=== PATIENT | female | born 1940 | race Native Hawaiian/Other Pacific Islander ===

== ENCOUNTER 2019-01-07 11:07 | Outpatient (CLI) | payer MEDICARE ==
--- NOTE | 2019-01-07 14:40 | Cat Scan Report ---
CT CERVICAL SPINE WITHOUT CONTRAST INDICATION: MAIN: (M54.12)CERVICAL RADICULOPATHY TECH NOTES: PT C/O LEFT HAND NUMBNESS AND LEFT RADHA K AND NECK PAIN S/P FALL X 1 MTH AGO.. TECHNIQUE: Axial imaging performed through the cervical spine without the use of contrast. Sagittal and coronal reconstructed images were also reviewed. All CT scans at this location are performed us ing CT dose reduction for ALARA by means of automated exposure control. COMPARISON: None FINDINGS: Alignment: Spinal alignment is normal. Bones: There is no acute osseous abnormality. Moderate degenerative disc narrowing and circumferent ial spurring is noted at C5-6. Mild to moderate right neural foraminal narrowing at C5-6 is estimated 50%. There is also moderate hypertrophic facet arthropathy at C3-4 resulting in moderate to severe r ight neural foraminal narrowing at C3-4 estimated at 50-75%. The remaining levels of the cervical sp ine are unremarkable. Soft tissues: No acute or significant incidental soft tissue abnormality. IMPRESSION: Cervical spondylosis as described. C3-4 and C5-6 are the most affected levels. See above . Signer Name: Zachery Levy Jr, MD Signed: 01/07/2019 2:35 PM Workstation Name: [id number]
== END 2019-01-07 11:08 | disposition home or self-care (01) ==
LOC: CT 11:07
PROVIDERS: ATTEND Internal Medicine
DX: M47.812 Spondylosis without myelopathy or radiculopathy, cervical region (principal); M48.02 Spinal stenosis, cervical region
CPT/HCPCS: 72125